=== PATIENT | male | born 1960 ===

== ENCOUNTER → 2017-06-23 13:48 | Outpatient (CLI) | payer OTHER | END | disposition home or self-care (01) | LOC: T RESPIRAT 13:48 | DX: R09.02 Hypoxemia (principal) ==

== ENCOUNTER 2017-06-23 20:05 | Inpatient (IN) | payer OTHER ==
[~2017-06-23] VITALS: Ht 208.3 cm; Wt 181.4 kg
[2017-06-30] MEDS ORDERED: XOPENEX0.63 MG/3 IH (09:11)
[2017-06-30] MEDS ORDERED: TOPROL XL100 M1 PO (09:11)
[2017-06-30] MEDS ORDERED: CARdura 4MG TABLET PO (09:11)
[2017-06-30] MEDS ORDERED: LEVAQUIN750 MG PO (09:11)
[2017-06-30] MEDS ORDERED: SIMVASTATIN20 MG PO (09:11)
[2017-06-30] MEDS ORDERED: Tussi-Organidin Dm-S PO (09:11)
[2017-06-30] MEDS ORDERED: AVAPRO300 MG PO (09:11)
== END 2017-06-30 11:49 | disposition home or self-care (01) | DRG 195 ==
LOC: ER 20:05 → MEDI 06-24 08:04
PROC: 3E0F7GC Introduction of Other Therapeutic Substance into Respiratory Tract, Via Natural or Artificial Opening (ICD-10-PCS; principal; 2017-06-24)
PROC: 4A033R1 Measurement of Arterial Saturation, Peripheral, Percutaneous Approach (ICD-10-PCS; 2017-06-25)
PROC: BB24ZZZ Computerized Tomography (CT Scan) of Bilateral Lungs (ICD-10-PCS; 2017-06-25)
DX: J18.9 Pneumonia, unspecified organism (principal); R09.02 Hypoxemia; E66.01 Morbid (severe) obesity due to excess calories; E11.9 Type 2 diabetes mellitus without complications; E03.8 Other specified hypothyroidism; I25.10 Atherosclerotic heart disease of native coronary artery without angina pectoris; G47.33 Obstructive sleep apnea (adult) (pediatric)